=== PATIENT | female | born 1930 | race Caucasian/White ===

== ENCOUNTER 2016-11-01 17:38 | Inpatient (IN) | payer MEDICARE, OTHER ==
--- NOTE | ~2016-11-01 | OP ---
Record Of Operation [facility] [address] [place]. 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 PROCEDURE: Right partial supraglottic laryngectomy with the da Yuliya platform. ANESTHESIA: General. COMPLICATIONS: None. COUNTS: All counts correct following the procedure. ESTIMATED BLOOD LOSS: 10 mL. PREOPERATIVE INFORMED CONSENT: We discussed risks and benefits of the surgery including, but not limited to bleeding, infection, possible loss of airway, , possible incomplete resection of tumor, possible need for tracheostomy, and possible postoperative aspiration. She understands the risks and benefits of surgery and consent is on chart. PROCEDURE IN DETAIL: The patient was brought to the operative suite, placed on the operating room table in supine position. The patient underwent rapid sequence intubation using a GlideScope by pa, where I placed a #6 reinforced endotracheal tube, under GlideScope guidance past the obstructive tumor. Once intubated, the patient's head and neck was cleaned, prepped, and draped in the usual sterile fashion. The eye guards were placed on the patient. Retraction suture was placed on the patient's tongue, and then an F-K retractor was placed down into the vallecula base of tongue, then the retractor was suspended from the bed using the suspension apparatus. The da Yuliya platform was brought into the field and the framing mill operator helper arms were positioned by me in the midline with the camera. The right arm with spatula cautery, the left arm with [place] forceps, following this, I went over to the framing mill operator helper console and with the assistance of the library clerical assistant. Then starting at the anterior aspect of the right aryepiglottic fold, the mucosa was transected, and dissecting along the capsule of the tumor, along the right aryepiglottic fold, it was dissected away from aryepiglottic fold back to the superior aspect of the right arytenoid. During the dissection, the superior laryngeal vessels were identified and were clamped with tiarra clip in triplicate, and the superior laryngeal artery was transected distally using the electrocautery. The tumor was then dissected away from the piriform sinus portion of the tumor and removed en block, and given to pathology for permanent and frozen section. There was minimal bleeding throughout the procedure. The piriform sinus aspect of the tumor could not be resected robotically, and it was inspected that the tumor went about fdc down into the right pyriform sinus, but did not appear to invade the postcricoid space, and the frozen section came back consistent with invasive squamous cell carcinoma. It was decided at this point, Sensor airway was significantly improved and we preserved her posterior Record Of Operation [address] [address] NAME: LANA RODRIGUEZ : 30 STATUS : DIS IN PAT#: [id number] AGE: 86 ADM/REG DATE : 11/01/16 MR#: [id number] REPORT SERV DATE: 11/06/16 DICTATED BY: KIMBER AGUDELO DATE: 11/02/16 REPORT STATUS : Draft TRANSCRIBED BY: MODL DATE: 11/02/16 arytenoid on the right hand side and then preserved the entire epiglottis that we would hold off on tracheostomy for now. The patient's endotracheal tube was switched out to a #7.5 endotracheal tube. The patient was then taken to ICU in stable condition. JEFFREY/OMAR Kimber Agudelo M.D. / [id number] CC: Yaquelin Franco M.D.
--- NOTE | ~2016-11-01 | HP ---
History And Physical [facility] [address] [place]. [address] NAME: LANA HOLLIS : 30 STATUS : ADM IN [facility]#: [id number] AGE: 86 ADM/REG DATE : 11/01/16 MR#: [id number] REPORT SERV DATE: 11/02/16 DICTATED BY: KIMBER AUGDELO DATE: 11/02/16 REPORT STATUS : Draft TRANSCRIBED BY: MODL DATE: 11/02/16 DATE OF ADMISSION: 11/01/2016 CHIEF COMPLAINT: Shortness of breath. HISTORY OF PRESENT ILLNESS: Ms. Hollis is a pleasant 86-year-old female who was recently treated with stereotactic radiotherapy for early stage lung cancer. At the beginning of October, she began having increasing issues with difficulty with pain and swallowing and intermittent hemoptysis. Also, it is noticed over the last several weeks that she has been having increasing difficulty of sleeping and unable to lie flat at night, has to sit up to be able to sleep. As followup to her treatment, she had a PET-CT on 10/16/2016 showing a 3 cm FDG avid right hypopharyngeal mass suggestive of a primary head and neck malignancy extending down to inferiorly to the false vocal cord. SOCIAL HISTORY: The patient smoked from age 18 to 55 approximately a pack of cigarettes a day. PAST MEDICAL HISTORY: Diabetes, hypertension, gastroesophageal reflux disease, hyperlipidemia, and congestive heart failure. PAST SURGICAL HISTORY: She had breast surgery as well as a hip replacement and pacemaker placement. ALLERGIES: NO KNOWN DRUG ALLERGIES. PHYSICAL EXAMINATION: GENERAL: The patient is a pleasant, alert, 86-year-old female with a muffled hot potato voice. HEENT: Her ears are clear. Nose is clear. Oral cavity/oropharynx, she is edentulous. She has good tongue mobility. Flexible nasal endoscopy in the office shows a large exophytic ball valving lesion appears to be centered on the right aryepiglottic fold. The true vocal cords are difficult to visualize, but appears they are mobile. There is no stridor during the exam. NECK: Supple. No palpable adenopathy or masses. CHEST: Clear to auscultation bilaterally. ABDOMEN: Benign. EXTREMITIES: No clubbing, cyanosis or edema. NEUROLOGIC: Grossly intact. 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 PLAN: The patient will be admitted for close observation in the ICU and then will be taken to operating room tomorrow for definitive treatment with robotic tumor debulking as well as probable tracheostomy. History And Physical [address] [place]. [address] NAME: LANA HOLLIS : 30 STATUS : ADM IN [facility]#: [id number] AGE: 86 ADM/REG DATE : 11/01/16 MR#: [id number] REPORT SERV DATE: 11/02/16 DICTATED BY: KIMBER AGUDELO DATE: 11/02/16 REPORT STATUS : Draft TRANSCRIBED BY: OMAR DATE: 11/02/16 JEFFREY/OMAR Kimber Agudelo M.D. / [id number] CC: Yaquelin Franco M.D. John A Fortney, M.D.
--- NOTE | ~2016-11-01 | DS ---
Discharge Summary [facility] [address] [place]. [address] NAME: LANA RODRIGUEZ : 30 STATUS : DIS IN PAT#: [id number] AGE: 86 ADM/REG DATE : 11/01/16 MR#: [id number] REPORT SERV DATE: 11/15/16 DICTATED BY: KIMBER AGUDELO DATE: 11/15/16 REPORT STATUS : Draft TRANSCRIBED BY: OMAR DATE: 11/15/16 Data Collection from hospitalization DISCHARGE DIAGNOSES: 1. T4 N0 squamous cell carcinoma of right supraglottic and right piriform sinus of the larynx. 2. Diabetes. 3. Hypertension. 4. Gastroesophageal reflux disease. 5. Hyperlipidemia. 6. Congestive heart failure. 7. Former smoker. CONSULTATIONS: None. PROCEDURES PERFORMED: Right partial supraglottic laryngectomy with the da Yuliya platform on 11/02/2016. PATHOLOGY: Larynx aryepiglottic fold, right partial supraglottic laryngectomy - invasive squamous cell carcinoma. MEDICATIONS: Clonidine 0.1 mg every four hours as needed. CONDITION AT DISCHARGE: Stable. DISPOSITION: The patient was discharged home on a regular diet with activities as instructed. She would follow up with me as instructed. She would follow up with Dr. Niko Cristina as instructed. HOSPITAL COURSE: This is an 86-year-old female who was recently treated with stereotactic radiotherapy for early stage lung cancer. At the beginning of October, she began having increasing issues with difficulty with pain and swallowing and intermittent hemoptysis. Over the past several weeks, she has had increasing difficulty sleeping and was unable to lie flat at night and had to sit up to be able to sleep. A PET-CT scan on 10/16/2016 showed a 3 cm FDG avid right hypopharyngeal mass suggestive of a primary head and neck malignancy extending down to inferiorly to the false vocal cord. Treatment options were discussed and it was elected to proceed with surgical intervention. She was admitted to the hospital at this time for further evaluation and treatment. Upon admission, she was seen by Dr. Melvina Gutiérrez regarding upper airway obstruction. Plans were being made to take the patient to the operating room later in the day. She was cooperative and interactive. Her voice was hoarse. On 11/02/2016, she was taken to the operating room where she underwent the above-mentioned procedure. She tolerated this well, and there were no complications. On postop day #1, she was doing well. She was alert. White count was 10.5. She was started on ice chips. Discharge planning was performed. On 11/04/2016, she did complain of a sore throat. She was tolerating a full liquid diet. She had no stridor. She had a raspy, but strong voice. Discharge instructions were given. Due to her improved and stable condition, she was discharged home with the above-stated Discharge Summary [id number] [place]. [address] NAME: LANA RODRIGUEZ : 30 STATUS : DIS IN PAT#: [id number] AGE: 86 ADM/REG DATE : 11/01/16 MR#: [id number] REPORT SERV DATE: 11/15/16 DICTATED BY: KIMBER AGUDELO DATE: 11/15/16 REPORT STATUS : Draft TRANSCRIBED BY: OMAR DATE: 11/15/16 instructions. Information collected by: Marj North I submit the above information as my discharge summary. TG/OMAR Kimber Agudelo M.D. / [id number] CC: Yaquelin Franco M.D.
[2016-11-01 20:20] LABS: BASOPHILS 0.4 %; BASOPHILS ABSOLUTE 0.04 10/3/uL (0.0-0.16); EOSINOPHILS 1.9 %; EOSINOPHILS ABSOLUTE 0.18 10/3/uL (0.0-0.53); HEMATOCRIT 37.4 % (36.0-48.0); HEMOGLOBIN 12.1 g/dL (12.0-16.0); IMMATURE GRANULOCYTES 0.2 %; IMMATURE GRANULOCYTES ABSOLUTE 0.02 10/3/uL (0.0-0.11); LYMPHOCYTES 11.4 %; MEAN CORPUS HGB CONC 32.4 g/dL (32.0-36.0); MEAN CORPUSCULAR HEMOGLOB 29.9 pg (26.0-34.0); MEAN PLATELET VOLUME 10.2 fL (9.2-13.0); MONOCYTES 10.6 %; MONOCYTES ABSOLUTE 1.02 10/3/uL (0.21-1.20); NEUTROPHILS 75.5 %; NEUTROPHILS ABSOLUTE 7.28 10/3/uL (2.02-8.40); PLATELET COUNT 209 10/3/uL (150-400); RBC DISTRIBUTION WIDTH 13.3 % (12.0-16.0); RED CELL COUNT 4.05 10/6/uL (4.0-5.6); WHITE BLOOD CELLS 9.6 10/3/uL (4.5-10.5)
[2016-11-01 20:21] LABS: MANUAL DIFF NO %; MEAN CORPUSCULAR VOLUME 92.3 fL (80-100)
[2016-11-01 20:33] LABS: ALBUMIN 3.8 G/DL (3.5-5.0); CALCIUM, SERUM 9.5 MG/DL (8.5-10.4); CHLORIDE, SERUM 103 MMOL/L (96-112); CO2 (CARBON DIOXIDE) 30 MMOL/L (24-34); CREATININE 1.13 MG/DL (0.55-1.02); GFR AFRICAN AMERICAN 51 ML/MIN (>=60); GFR NON AFRICAN AMERICAN 44 ML/MIN (>=60); GLUCOSE, SERUM 85 MG/DL (60-99); POTASSIUM, SERUM 4.6 MMOL/L (3.5-5.3); SGOT(AST) 28 U/L (5-40); SGPT(ALT) 29 U/L (5-65); SODIUM, SERUM 139 MMOL/L (135-148); TOTAL BILIRUBIN 0.3 MG/DL (0-1.2); TOTAL PROTEIN 7.8 G/DL (6.0-8.5)
[2016-11-01 20:34] LABS: ALKALINE PHOSPHATASE 64 U/L (45-117); BUN (BLOOD UREA NITROGEN) 29 MG/DL (6-23)
[2016-11-01] MEDS ORDERED: KLOR-CON M2020 MEQ PO (20:50)
[2016-11-01] MEDS ORDERED: VASOTEC2 PO (20:51)
[2016-11-01] MEDS ORDERED: LAN125 PO (20:51)
[2016-11-01] MEDS ORDERED: COREG6 PO (20:52)
[2016-11-01] MEDS ORDERED: ZOCOR20 PO (20:53)
[2016-11-01] MEDS ORDERED: ZETIA (20:53)
[2016-11-01] MEDS ORDERED: ZETIA PO (20:53)
[2016-11-01] MEDS ORDERED: MAGOX4 PO (20:54)
[2016-11-01] MEDS ORDERED: ASAB PO (20:55)
[2016-11-01] MEDS ORDERED: PRILO PO (20:55)
[2016-11-01] MEDS ORDERED: FERROUS SULF325 M1 PO (20:55)
[2016-11-01] MEDS ORDERED: ARICEPT23 MG PO (21:01)
[2016-11-01] MEDS ORDERED: AMARYL2 PO (21:01)
[2016-11-01] MEDS ORDERED: NORCO1 TA1 PO (21:03)
[2016-11-01] MEDS ORDERED: L20 PO (21:03)
[2016-11-02 04:02] LABS: BASOPHILS 0.5 %; BASOPHILS ABSOLUTE 0.06 10/3/uL (0.0-0.16); EOSINOPHILS 0.5 %; EOSINOPHILS ABSOLUTE 0.06 10/3/uL (0.0-0.53); HEMATOCRIT 36.7 % (36.0-48.0); HEMOGLOBIN 12.2 g/dL (12.0-16.0); IMMATURE GRANULOCYTES 0.1 %; IMMATURE GRANULOCYTES ABSOLUTE 0.01 10/3/uL (0.0-0.11); LYMPHOCYTES 7.1 %; LYMPHOCYTES ABSOLUTE 0.79 10/3/uL (0.67-4.30); MEAN CORPUS HGB CONC 33.2 g/dL (32.0-36.0); MEAN CORPUSCULAR HEMOGLOB 30.4 pg (26.0-34.0); MEAN CORPUSCULAR VOLUME 91.5 fL (80-100); MEAN PLATELET VOLUME 10.4 fL (9.2-13.0); MONOCYTES 4.9 %; MONOCYTES ABSOLUTE 0.55 10/3/uL (0.21-1.20); NEUTROPHILS 86.9 %; NEUTROPHILS ABSOLUTE 9.68 10/3/uL (2.02-8.40); PLATELET COUNT 221 10/3/uL (150-400); RED CELL COUNT 4.01 10/6/uL (4.0-5.6); WHITE BLOOD CELLS 11.2 10/3/uL (4.5-10.5)
[2016-11-02 04:08] LABS: INTERNATIONAL NORMAL RATI 1.1 UNITS (-)
[2016-11-02 04:09] LABS: MANUAL DIFF NO %
[2016-11-02 04:13] LABS: CALCIUM, SERUM 9.7 MG/DL (8.5-10.4); CHLORIDE, SERUM 102 MMOL/L (96-112); CO2 (CARBON DIOXIDE) 28 MMOL/L (24-34); CREATININE 1.08 MG/DL (0.55-1.02); GFR AFRICAN AMERICAN 54 ML/MIN (>=60); GFR NON AFRICAN AMERICAN 46 ML/MIN (>=60); POTASSIUM, SERUM 4.2 MMOL/L (3.5-5.3); SODIUM, SERUM 138 MMOL/L (135-148)
[2016-11-02 04:15] LABS: BUN (BLOOD UREA NITROGEN) 25 MG/DL (6-23); GLUCOSE, SERUM 176 MG/DL (60-99)
[2016-11-02 17:33] LABS: BE (BASE EXCESS) 1.8 MEQ/L (0 +/- 2.5); CARBOXYHEMOGLOBIN 0.3 % (0-3); HEMOBLOGIN CONTENT 12.1 G/DL (12-16); INSTRUMENT SERIAL # 35151; METHEMOGLOBIN 0.7 % (0-3); MODE A/C; O2 CONTENT 17.3 VOL% (18-24); PCO2 (CO2 TENSION) 39 MMHG (35-45); PO2 (O2 TENSION) 250 MMHG (79-93); SAMPLE Arterial; TIDAL VOLUME 420 ML; pH 7.44 (7.37-7.43)
[2016-11-03 01:18] LABS: BASOPHILS 0.1 %; BASOPHILS ABSOLUTE 0.01 10/3/uL (0.0-0.16); EOSINOPHILS 0 %; HEMATOCRIT 34.4 % (36.0-48.0); HEMOGLOBIN 11.3 g/dL (12.0-16.0); IMMATURE GRANULOCYTES 0.3 %; IMMATURE GRANULOCYTES ABSOLUTE 0.03 10/3/uL (0.0-0.11); LYMPHOCYTES 4.4 %; LYMPHOCYTES ABSOLUTE 0.46 10/3/uL (0.67-4.30); MEAN CORPUS HGB CONC 32.8 g/dL (32.0-36.0); MEAN CORPUSCULAR VOLUME 91.2 fL (80-100); MEAN PLATELET VOLUME 10.4 fL (9.2-13.0); MONOCYTES 1.6 %; MONOCYTES ABSOLUTE 0.17 10/3/uL (0.21-1.20); NEUTROPHILS 93.6 %; NEUTROPHILS ABSOLUTE 9.87 10/3/uL (2.02-8.40); PLATELET COUNT 193 10/3/uL (150-400); RBC DISTRIBUTION WIDTH 13.3 % (12.0-16.0); RED CELL COUNT 3.77 10/6/uL (4.0-5.6); WHITE BLOOD CELLS 10.5 10/3/uL (4.5-10.5)
[2016-11-03 01:20] LABS: MANUAL DIFF NO %
[2016-11-03 01:28] LABS: ALBUMIN 3.1 G/DL (3.5-5.0); CHLORIDE, SERUM 105 MMOL/L (96-112); CO2 (CARBON DIOXIDE) 25 MMOL/L (24-34); CREATININE 1.18 MG/DL (0.55-1.02); GFR AFRICAN AMERICAN 48 ML/MIN (>=60); GFR NON AFRICAN AMERICAN 42 ML/MIN (>=60); PHOSPHORUS, SERUM 5.5 MG/DL (2.5-4.5); POTASSIUM, SERUM 4.3 MMOL/L (3.5-5.3); SODIUM, SERUM 141 MMOL/L (135-148)
[2016-11-03 01:29] LABS: BUN (BLOOD UREA NITROGEN) 38 MG/DL (6-23); CALCIUM, SERUM 8.1 MG/DL (8.5-10.4); GLUCOSE, SERUM 219 MG/DL (60-99)
[2016-11-03 03:48] LABS: BE (BASE EXCESS) -1.4 MEQ/L (0 +/- 2.5); CARBOXYHEMOGLOBIN 0.3 % (0-3); HCO3 (ACTUAL BICARBONATE) 24.4 MEQ/L (23-27); HEMOBLOGIN CONTENT 12.1 G/DL (12-16); INSTRUMENT SERIAL # 35151; METHEMOGLOBIN 0.5 % (0-3); MODE CMV; O2 CONTENT 16.8 VOL% (18-24); OPERATOR ID 13861; PCO2 (CO2 TENSION) 45 MMHG (35-45); PO2 (O2 TENSION) 132 MMHG (79-93); SAMPLE Arterial; TIDAL VOLUME 420 ML; pH 7.35 (7.37-7.43)
[2016-11-04 05:17] LABS: BASOPHILS 0.1 %; BASOPHILS ABSOLUTE 0.01 10/3/uL (0.0-0.16); EOSINOPHILS 0 %; HEMATOCRIT 31.4 % (36.0-48.0); HEMOGLOBIN 10.1 g/dL (12.0-16.0); IMMATURE GRANULOCYTES 0.3 %; IMMATURE GRANULOCYTES ABSOLUTE 0.05 10/3/uL (0.0-0.11); LYMPHOCYTES 2.8 %; LYMPHOCYTES ABSOLUTE 0.44 10/3/uL (0.67-4.30); MEAN CORPUS HGB CONC 32.2 g/dL (32.0-36.0); MEAN CORPUSCULAR HEMOGLOB 30.1 pg (26.0-34.0); MEAN CORPUSCULAR VOLUME 93.5 fL (80-100); MEAN PLATELET VOLUME 10.7 fL (9.2-13.0); MONOCYTES 4.2 %; MONOCYTES ABSOLUTE 0.66 10/3/uL (0.21-1.20); NEUTROPHILS 92.6 %; NEUTROPHILS ABSOLUTE 14.69 10/3/uL (2.02-8.40); PLATELET COUNT 207 10/3/uL (150-400); RBC DISTRIBUTION WIDTH 13.7 % (12.0-16.0); RED CELL COUNT 3.36 10/6/uL (4.0-5.6)
[2016-11-04 05:20] LABS: MANUAL DIFF NO %; WHITE BLOOD CELLS 15.9 10/3/uL (4.5-10.5)
[2016-11-04 05:26] LABS: CALCIUM, SERUM 8.8 MG/DL (8.5-10.4); CHLORIDE, SERUM 107 MMOL/L (96-112); CO2 (CARBON DIOXIDE) 28 MMOL/L (24-34); CREATININE 1.21 MG/DL (0.55-1.02); GFR AFRICAN AMERICAN 47 ML/MIN (>=60); GFR NON AFRICAN AMERICAN 40 ML/MIN (>=60); GLUCOSE, SERUM 198 MG/DL (60-99); POTASSIUM, SERUM 4.6 MMOL/L (3.5-5.3); SODIUM, SERUM 143 MMOL/L (135-148)
[2016-11-04 05:27] LABS: BUN (BLOOD UREA NITROGEN) 44 MG/DL (6-23); PHOSPHORUS, SERUM 3.8 MG/DL (2.5-4.5)
== END 2016-11-04 13:00 | disposition home or self-care (01) | DRG 129 ==
LOC: CCU 17:38
PROVIDERS: Internal Medicine; Internal Medicine Critical Care Medicine; Otolaryngology
PROC: 0CBS8ZZ Excision of Larynx, Via Natural or Artificial Opening Endoscopic (ICD-10-PCS; principal; 2016-11-02 12:30)
DX: C32.1 Malignant neoplasm of supraglottis (principal); J96.00 Acute respiratory failure, unspecified whether with hypoxia or hypercapnia; C79.89 Secondary malignant neoplasm of other specified sites; I95.9 Hypotension, unspecified; N17.9 Acute kidney failure, unspecified; C13.1 Malignant neoplasm of aryepiglottic fold, hypopharyngeal aspect; E11.9 Type 2 diabetes mellitus without complications; R04.2 Hemoptysis; I50.9 Heart failure, unspecified; J98.8 Other specified respiratory disorders; I10 Essential (primary) hypertension; K21.9 Gastro-esophageal reflux disease without esophagitis; E78.5 Hyperlipidemia, unspecified; Z96.649 Presence of unspecified artificial hip joint; G31.84 Mild cognitive impairment of uncertain or unknown etiology; Z95.0 Presence of cardiac pacemaker; Z87.891 Personal history of nicotine dependence; Z85.118 Personal history of other malignant neoplasm of bronchus and lung; Z92.3 Personal history of irradiation
CPT/HCPCS: 31720; 36600; 71010; 80048; 80053; 80069; 80162; 82805; 82962; 83735; 84100; 85025; 85610; 85730; 87641; 88307; 88309; 88331; 88342; 93005; 94002; 94003; 94640; 94660; 94770; A9270-GY; J0360; J0690; J2370; J2405; J3010; P9047